=== PATIENT | male | born 1995 | race African-American/Black ===

== ENCOUNTER 2017-05-08 16:56 | Emergency (ER) | payer MEDICAID ==
[~2017-05-08] VITALS: Ht 190.5 cm; Wt 81.6 kg
--- NOTE | 2017-05-08 17:29 | ER.PDOC ---
General Chief Complaint: Sore Throat Stated Complaint: SORE THROAT Time seen by MD: 17:27 Source: patient Exam Limitations: no limitations History of Present Illness Initial Comments Sore throat for 2 days Associated Symptoms: mod sore throat Severity: moderate Allergies: Coded Allergies: No Known Allergies (Unverified , 05/08/17) Past Medical History Medical History: no pertinent history Surgical History: no surgical history Social History Smoking: non-smoker Alcohol Use: none Drug Use: none Constitutional: no symptoms reported Throat: see HPI Respiratory: no symptoms reported Cardiovascular: no symptoms reported Gastrointestinal: no symptoms reported All Other Systems: Reviewed and Negative Physical Exam General Appearance: alert, no distress Mouth: lips, gums nml, no drooling, no thrush, membranes nml Throat: pharyngeal erythema, tonsillar exudate Ears/Nose: nml inspection Respiratory: no resp. distress, lungs clear CVS: reg. rate & rhythm, heart sounds nml Abdomen: non-tender, no organomegaly Extremities: non-tender, ROM nml Skin Exam: Normal Color, Warm/Dry NEURO/PSYCH: oriented X3, mood/effect nml Departure Time of Disposition: 17:28 Disposition: 01 HOME, SELF-CARE Impression: Primary Impression: Acute tonsillitis Qualified Codes: J03.90 - Acute tonsillitis, unspecified Additional Impression: Acute pharyngitis Qualified Codes: J02.9 - Acute pharyngitis, unspecified Condition: Stable Referrals: PCP,UNKNOWN (PCP) PRIMARY CARE PROVIDER Additional Instructions: Amoxil Prednisone Chloraseptic spray OTC as needed for throat pain F/U with your PCP in 3-4 days BOBBY DAHL MD May 08, 2017 17:29
[2017-05-08 17:50] VITALS: BP 138/85
== END 2017-05-08 17:40 | disposition home or self-care (01) ==
LOC: ER 16:56
DX: J03.90 Acute tonsillitis, unspecified (principal); J06.9 Acute upper respiratory infection, unspecified
CPT/HCPCS: 99283